=== PATIENT | female | born 1985 | race Caucasian/White ===

== ENCOUNTER 2018-05-19 07:57 | Emergency (ER) | payer OTHER ==
[2018-05-19 08:13] VITALS: BP 150/96
[2018-05-19] MEDS ORDERED: Fluorescein Sodium TOPICAL* 1 MG TEST STRIP OPHTHALMIC ONE (08:16)
[2018-05-19] MEDS ORDERED: Tetracaine 0.5% OPTH.SOL 4 ML* 1 DROP BTL RIGHT EYE ONE (08:16)
--- NOTE | 2018-05-19 08:37 | UC ---
Eye Complaint HPI - HPI Summary HPI Summary: 32-year-old woman comes to clinic today with a chief complaint of right eye pain. This morning one of her children accidentally scratched her right eye with their finger. No change in vision. She is having a lot of clear discharge. Pain is worse with opening and closing the eyelid. She does not wear contacts or glasses. - History of Current Complaint Chief Complaint: UCEye Stated Complaint: EYE COMPLAINT Time Seen by Provider: 05/19/18 08:15 Hx Last Menstrual Period: 04/21/18 Pain Intensity: 8 - Allergies/Home Medications Allergies/Adverse Reactions: Allergies Allergy/AdvReac Type Severity Reaction Status Date / Time No Known Allergies Allergy Verified 05/19/18 08:13 PMH/Surg Hx/FS Hx/Imm Hx Previously Healthy: Yes - Surgical History Surgical History: Yes Surgery Procedure, Year, and Place: , 2013 - Family History Known Family History: Positive: Non-Contributory - Social History Alcohol Use: None Substance Use Type: None Smoking Status (MU): Never Smoked Tobacco - Immunization History Most Recent Influenza Vaccination: February 2014 Review of Systems All Other Systems Reviewed And Are Negative: Yes Constitutional: Positive: Negative Skin: Positive: Negative Eyes: Positive: Drainage, Other - SEE HPI ENT: Positive: Negative Respiratory: Positive: Negative Cardiovascular: Positive: Negative Gastrointestinal: Positive: Negative Motor: Positive: Negative Neurovascular: Positive: Negative Musculoskeletal: Positive: Negative Neurological: Positive: Negative Psychological: Positive: Negative Is Patient Immunocompromised?: No Physical Exam Triage Information Reviewed: Yes Appearance: Well-Appearing, Well-Nourished, Pain Distress - MILD Vital Signs: Initial Vital Signs Temp 97.6 F 05/19/18 08:09 Pulse 83 05/19/18 08:09 Resp 18 05/19/18 08:09 BP 150/96 05/19/18 08:09 Pulse Ox 99 05/19/18 08:09 Vital Signs Reviewed: Yes Eyes: Positive: Conjunctiva Inflamed - RIGHT, Discharge - RIGHT CLEAR, Other: - Examination of the right I with tetracaine and fluorescein stain; PERRLA EOMI Globe is intact. PUPIL Symmetric irises symmetric. There is a corneal abrasion with fluorescein uptake that is 2 mm wide extending from the right lower iris laterally FOR 6 mm. Eye Complaint Course/Dx - Differential Dx/Diagnosis Provider Diagnosis: Right corneal abrasion Discharge - Sign-Out/Discharge Documenting (check all that apply): Patient Departure All imaging exams completed and their final reports reviewed: No Studies - Discharge Plan Condition: Stable Disposition: HOME Prescriptions: Tobramycin 0.3% OPHTH.JEREMIAH* 1 drop RIGHT EYE Q4H #1 btl Patient Education Materials: Corneal Abrasion (ED) Forms: *Work Release Referrals: [facility] [place] [facility] REFERRAL [Outside] Pito Vallejo MD [Medical Doctor] - Joselito English MD [Medical Doctor] - Additional Instructions: FOLLOW UP WITH OPHTHALMOLOGY IF NOT COMPLETELY IMPROVED. GET RECHECKED FOR ANY WORSENING OF YOUR CONDITION OR QUESTIONS OR CONCERNS. - Billing Disposition and Condition Condition: STABLE Disposition: Home
== END 2018-05-19 08:46 | disposition home or self-care (01) ==
LOC: UCEAST 07:57
DX: S05.01XA Injury of conjunctiva and corneal abrasion without foreign body, right eye, initial encounter (principal); W50.4XXA Accidental scratch by another person, initial encounter; Y92.9 Unspecified place or not applicable
CPT/HCPCS: 99202; A9270-GY; G0463